=== PATIENT | male | born 1960 | race Two or more races ===

== ENCOUNTER 2024-12-05 11:16 | Inpatient (IN) | payer MEDICARE, OTHER ==
[~2024-12-05] VITALS: Ht 165.1 cm; Wt 71.6 kg
--- NOTE | 2024-12-05 11:59 | ED.PDOC ---
GI ASSESSMENT HPI Comments A 64 year-old male, with a PMHX of high lipids, presents to the ED with a chief complaint of lower abdominal pain with associated diarrhea and gas. Patient states lower abdominal pain has been constant for months, but reports gas and diarrhea with dark stool as of yesterday. Patient reports lower abdominal pain as 6/10 and constant. Patient reports being seen at a local outpatient clinic where he was given medication for H. pylori, but reports no alleviating factors. Patient has no further complaints at this time and otherwise denies further associated symptoms of N/V, hematemesis, chest pain, fever, chills, dysuria, or hematuria. Chief Complaint: Abdominal Pain Time Seen by MD: 11:39 Reviewed Notes: Nurses Notes, Medications, Allergies Allergies: Coded Allergies: NO KNOWN ALLERGIES (Unverified , 12/05/24) Information Source: Patient Mode of Arrival: Ambulatory Timing: Months Duration: Since onset Prehospital treatment: None Severity: Moderate Pain Location: RLQ, LLQ Associated sign and symptoms: Diarrhea, Abdominal Pain Past Medical History PAST MEDICAL HISTORY: High Lipids Surgical History: Hernia Repair Surgical History (Other): Bilateral Knee Surgery, Back Surgery Family History Family History: Reviewed,noncontributory to illness, No family hx of Cancer, No family hx of Heart v[place]a, No family hx of HTN, No family hx ofKidney vinita, No family hx of Liver v[place]a, No family hx of Lung v[place]a, No family hx of Stroke, Family hx of DM Social History Smoker: Non-Smoker Alcohol: Rarely Drugs: Denies Drug Use Lives In: Home Constitutional: denies: chills, diaphoresis, fatigue, fever, malaise, sweats, weakness, others EENTM: denies: blurred vision, double vision, ear bleeding, ear discharge, ear drainage, ear pain, ear ringing, eye pain, eye redness, hearing loss, mouth pain, mouth swelling, nasal discharge, nose bleeding, nose congestion, nose pain, photophobia, tearing, throat pain, throat swelling, voice changes, others Respiratory: denies: cough, hemoptysis, orthopnea, SOB at rest, shortness of breath, SOB with excertion, stridor, wheezing, others Cardiovascular: denies: chest pain, dizzy spells, diaphoresis, Dyspnea on exertion, edema, irregular heart beat, left arm pain, lightheadedness, palpitations, PND, syncope, others Gastrointestinal: reports: abdominal pain, diarrhea, others (dark stool ); denies: abdomen distended, blood streaked bowels, constipated, dysphagia, difficulty swallowing, hematemesis, melena, nausea, poor appetite, poor fluid i ntake, rectal bleeding, rectal pain, vomiting Genitourinary: denies: burning, dysuria, flank pain, frequency, hematuria, incontinence, penile discharge, penile sore, pain, testicle pain, testicle swelling, urgency, others Neurological: denies: dizziness, fainting, headache, left sided numbness, left sided weakness, numbness, paresthesia, pre-existing deficit, right sided numbness, right sided weakness, seizure, speech problems, tingling, tremors, weakness, others Musculoskeletal: denies: back pain, gout, joint pain, joint swelling, muscle pain, muscle stiffness, neck pain, others Integumetry: denies: bruises, change in color, change in hair/nails, dryness, laceration, lesions, lumps, rash, wounds, others Allergic/Immunocompromised: denies: Difficulty Healing, Frequent Infections, Hives, Itching, others Hematologic/Lymphatic: denies: anemia, blood clots, easy bleeding, easy bruisi ng, swollen glands, others Endocrine: denies: excessive hunger, excessive sweating, excessive thirst, exce ssive urination, flushing, intolerance to cold, intolerance to heat, unexplained weight gain, unexplained weight loss, others Psychiatric: denies: anxiety, bipolar disorder, depression, hopeless, panic disorder, schizophrenia, sleepless, suicidal, others All Other Systems: Reviewed and Negative Physical Exam General Appearance: Moderate Distress HEENT: Normal ENT Inspection, Pharynx Normal, TMs Normal Neck: Full Range of Motion, Non-Tender, Normal, Normal Inspection Respiratory: Chest Non-Tender, Lungs Clear, No Accessory Muscle Use, No Respiratory Distress, Normal Breath Sounds Cardiovascular: No Edema, No JVD, No Murmur, No Gallop, Normal Peripheral Pulses, Regular Rate/Rhythm Breast Exam: Deferred Gastrointestinal: Diffuse, No Organomegaly, No Pulsatile Mass, Normal Bowel Sounds, Soft, Tenderness Genitalia: Deferred Pelvic: Deferred Rectal: Deferred Extremities: No calf tenderness, Normal capillary refill, Normal inspection, Normal range of motion, Non-tender, No pedal edema Musculoskeletal : Apperance: Normal Neurologic: Alert, welder pipe making II-XII nml as Tested, No Motor Deficits, Normal Affect, Normal Mood, No Sensory Deficits Cerebellar Function: Normal Reflexes: Normal Skin: Dry, Normal Color, Warm Lymphatic: No Adenopathy Was a procedure done? Was a procedure done?: No GI differential Dx Differential Diagnosis: Constipation, Gastroenteritis, Inflammatory BD, UTI, Dehydration, Food Poisoning, Bacterial, Parasitic, Viral X-Ray, Labs, Meds, VS Vital Signs Date Time Temp Pulse Resp B/P (MAP) Pulse Ox O2 Delivery O2 Flow Rate FiO2 12/05/24 11:20 98.0 59 16 148/81 98 98.0 Lab Test 12/05/24 11:56 12/05/24 11:42 Range/Units White Blood Count 6.6 4.4-10.8 10^3/uL Red Blood Count 5.01 4.5-5.90 10^6/uL Hemoglobin 15.9 13.5-17.5 g/dL Hematocrit 45.4 41.0-53.0 % Mean Corpuscular Volume 90.7 80.0-100.0 fL Mean Corpuscular Hemoglobin 31.7 28.0-32.0 pg Mean Corpuscular Hemoglobin Concent 34.9 32.0-36.0 g/dL Red Cell Distribution Width 12.8 11.8-14.3 % Platelet Count 307 140-450 10^3/uL Mean Platelet Volume 7.5 6.9-10.8 fL Neutrophils (%) (Auto) 70.9 37.0-80.0 % Lymphocytes (%) (Auto) 18.9 10.0-50.0 % Monocytes (%) (Auto) 8.4 0.0-12.0 % Eosinophils (%) (Auto) 1.2 0.0-7.0 % Basophils (%) (Auto) 0.6 0.0-2.0 % Neutrophils # (Auto) 4.7 1.6-8.6 10 ^3/uL Lymphocytes # (Auto) 1.3 0.4-5.4 10 ^3/uL Monocytes # (Auto) 0.6 0-1.3 10 ^3/uL Eosinophils # (Auto) 0.1 0-0.8 10 ^3/uL Basophils # (Auto) 0 0-0.2 10 ^3/uL Nucleated Red Blood Cells 0.1 % Sodium Level 140 136-145 mmol/L Potassium Level 4.0 3.5-5.1 mmol/L Chloride Level 106 98-107 mmol/L Carbon Dioxide Level 25 20-31 mmol/L Anion Gap 9 5-15 Blood Urea Nitrogen 17 9-23 mg/dL Creatinine 0.71 0.700-1.30 mg/dL Glomerular Filtration Rate Calc 101 >90 mL/min BUN/Creatinine Ratio 23.9 H 10.0-20.0 Serum Glucose 104 74-106 mg/dL Calcium Level 9.3 8.7-10.4 mg/dL Total Bilirubin 0.8 0.2-1.0 mg/dL Aspartate Amino Transferase (AST) 41 H 13-40 U/L Alanine Aminotransferase (ALT) 42 H 7-40 U/L Alkaline Phosphatase 68 46-116 U/L Total Protein 7.0 5.7-8.2 g/dL Albumin 4.6 3.2-4.8 g/dL Lipase 93 H 12-53 U/L Urine Color Yellow Yellow Urine Clarity Clear Clear Urine pH 5.5 5.0-9.0 Urine Specific [place] 1.030 1.001-1.035 Urine Protein Negative Negative Urine Ketones Negative Negative Urine Blood Negative Negative /uL Urine Nitrite Negative Negative Urine Bilirubin Negative Negative Urine Urobilinogen Normal Negative mg/dL Urine Leukocyte Esterase Negative Negative /uL Urine RBC 1 0 - 3 /hpf Urine Microscopic WBC 1 0-3 /HPF Urine Squamous Epithelial Cells Few <5 /hpf Urine Bacteria None seen None Seen /hpf Urine Glucose Normal Normal mg/dL CAT scan of the abdomen and pelvis shows: IMPRESSION: 1. 5 mm left lower lobe noncalcified pulmonary nodule. Recommend follow-up according to Fleischner society guidelines. 2. 13 mm left renal superior pole hyperattenuating cortical lesion which may represent a hyperdense or hemorrhagic cyst. Recommend follow-up renal ultrasound for better characterization. 3. Mild prostatic enlargement. 4. Postoperative changes ventral pelvic wall herniorrhaphy with mesh and lumbar spine surgery. 5. No evidence of bowel obstruction, acute appendicitis, or other acute process in the abdomen or pelvis. The patient's CBC is within normal limits. At this time, the patient's lipase is elevated at 90 consistent with acute pancreatitis The patient is being admitted at the signs The patient understands and agrees with the management. Images Reviewed?: Images reviewed and evaluated by me Time of 1ST Reevaluation: 12:17 Reevaluation 1ST: Unchanged Patient Education/Counseling: Diagnosis, Treatment, Prognosis Family Education/Counseling: No Family Present SEPSIS Sepsis Screen Date sepsis recognized/suspect: Dec 05, 2024 Time Sepsis recognized/suspect: 1120 Recent Procedure: No On Antibiotic Therapy: No Respiratory Rate >20: No Heart Rate >90: No Temp<36 C (96.8 F) or >38.3 C: No SBP <90 or MAP <65 mmHG: No New Acute Mental Status Change: No Is the patient on CPAP, BIPAP,: No Physician Orders Ct Ab Pel Wo Con-No Oral Or Iv (12/05/24 11:42) Vital Signs Date Time Temp Pulse Resp B/P (MAP) Pulse Ox O2 Delivery O2 Flow Rate FiO2 12/05/24 11:20 98.0 59 16 148/81 98 98.0 Laboratory Tests Test 12/05/24 11:56 White Blood Count 6.6 10^3/uL (4.4-10.8) Departure 1 Departure Time of Disposition: 13:21 Impression: Primary Impression: Intractable abdominal pain Additional Impression: Acute pancreatitis Qualified Codes: K85.90 - Acute pancreatitis without necrosis or infection, unspecified Disposition: ADMITTED INPATIENT Condition: Fair Discharged With: Self Critical Care Note Critical Care Time?: No Stability Stability form required: Yes Unstable for transfer: ED Physician Assesment (Clinical assesment) Heart Score Heart Score: Heart Score Response (Comments) Value History N/A 0 EKG N/A 0 Age N/A 0 Risk Factors N/A 0 Troponin N/A 0 Total 0 I personally scribed for QUINTEN CONKLIN MD ([email or web address]) on 12/05/24 at 11:59. Electronically submitted by Isa Wiseman ([employer]). I personally scribed for QUINTEN CONKLIN MD ([email or web address]) on 12/05/24 at 12:52. Electronically submitted by Isa Wiseman ([employer]). QUINTEN CONKLIN MD Dec 05, 2024 11:59
[2024-12-05 12:16] LABS: Hematocrit 45.4 % (41.0-53.0); Hemoglobin 15.9 g/dL (13.5-17.5); Mean Corpuscular Hemoglobin 31.7 pg (28.0-32.0); Mean Corpuscular Volume 90.7 fL (80.0-100.0); Nucleated Red Blood Cells % 0.1 %
--- NOTE | 2024-12-05 12:45 | DVH ---
EXAM: CT CT AB PEL WO CON-NO ORAL OR IV HISTORY: pain COMPARISON: None TECHNIQUE: Helical CT images of the abdomen and pelvis were performed without IV contrast. Sagittal a nd coronal reformatted images were obtained. This CT exam was performed using one or more of the foll owing dose reduction techniques: Automated exposure control, adjustment of the mA and/or kv according to patient size, or the use of iterative reconstruction techniques. Radiation Dose: Abdomen/Pelvis: CTDIvol 6.62 mGy, DLP 385.2 mGy*cm. FINDINGS: CT abdomen: There is a 5 mm noncalcified pulmonary nodule in the left lower lobe (image 13, series 3) . The heart is not enlarged. There is a hyperattenuating 13 mm lesion in the left renal superior pole cortex (image 29, series 2). The noncontrast liver, spleen, gallbladder, pancreas, right kidney, and bilateral adrenal glands are unremarkable. No abdominal aortic aneurysm. CT pelvis: No abnormal bowel dilatation, free air, or free fluid. The appendix and urinary bladder ar e unremarkable. The prostate is mildly enlarged. There are postoperative changes of ventral pelvic he rniorrhaphy with mesh. There are postoperative changes of L4-L5 discectomy, intervertebral disc prost hesis, and posterior fusion with pedicle screws and rods. There is lumbosacral transitional vertebrae . IMPRESSION: 1. 5 mm left lower lobe noncalcified pulmonary nodule. Recommend follow-up according to Fleischner s ociety guidelines. 2. 13 mm left renal superior pole hyperattenuating cortical lesion which may represent a hyperdense o r hemorrhagic cyst. Recommend follow-up renal ultrasound for better characterization. 3. Mild prostatic enlargement. 4. Postoperative changes ventral pelvic wall herniorrhaphy with mesh and lumbar spine surgery. 5. No evidence of bowel obstruction, acute appendicitis, or other acute process in the abdomen or pel vis.
[2024-12-05 12:50] LABS: Urine Protein, UAD Negative (Negative)
[2024-12-05 13:00] LABS: Albumin 4.6 g/dL (3.2-4.8); Alkaline Phosphatase 68 U/L (46-116); Anion Gap 9 (5-15); BUN/Creatinine Ratio 23.9 (10.0-20.0); Bilirubin, Total 0.8 mg/dL (0.2-1.0); Blood Urea Nitrogen 17 mg/dL (9-23); Calcium 9.3 mg/dL (8.7-10.4); Carbon Dioxide 25 mmol/L (20-31); Chloride 106 mmol/L (98-107); Glucose 104 mg/dL (74-106); Potassium 4.0 mmol/L (3.5-5.1); Sodium 140 mmol/L (136-145); Total Protein 7.0 g/dL (5.7-8.2)
[2024-12-05 13:04] LABS: Alanine Aminotransferase 42 U/L (7-40); Lipase 93 U/L (12-53)
[2024-12-05] MEDS ORDERED: ONDANSETRON HCL 4 MG/2 ML VIAL IV PRN (18:45)
[2024-12-05] MEDS ORDERED: DOCUSATE SOD 100 MG CAP PO PRN (18:45)
[2024-12-05] MEDS ORDERED: ACETAMINOPHEN 325 MG TAB PO PRN (18:45)
[2024-12-05] MEDS ORDERED: HYDROcodone-ACET 5/325MG TAB PO PRN (18:45)
--- NOTE | 2024-12-05 18:47 | DVHHP2 ---
Admitting Diagnosis: Abdominal pain History of Present Illness A 64 year-old male, with a PMHX of high lipids, presents to the ED with a chief complaint of lower abdominal pain with associated diarrhea and gas. Patient states lower abdominal pain has been constant for months, but reports gas and diarrhea with dark stool as of yesterday. Patient reports lower abdominal pain as 6/10 and constant. Patient reports being seen at a local outpatient clinic where he was given medication for H. pylori, but reports no alleviating factors. Patient has no further complaints at this time and otherwise denies further associated symptoms of N/V, hematemesis, chest pain, fever, chills, dysuria, or hematuria. PAST MEDICAL HISTORY: High Lipids Surgical History: Hernia Repair Surgical History (Other): Bilateral Knee Surgery, Back Surgery Family History Family History: Reviewed,noncontributory to illness, No family hx of Cancer, No family hx of Heart v[place], No family hx of HTN, No family hx ofKidney v[place]a, No family hx of Liver [place], No family hx of Lung [place], No family hx of Stroke, Family hx of DM Social History Smoker: Non-Smoker Alcohol: Rarely Drugs: Denies Drug Use Lives In: Home Allergies: Coded Allergies: NO KNOWN ALLERGIES (Unverified , 12/05/24) Vital Signs Vital Signs Date Time Temp Pulse Resp B/P (MAP) Pulse Ox O2 Delivery O2 Flow Rate FiO2 12/05/24 11:20 98.0 59 16 148/81 98 98.0 Physical Exam Generally 64 years old male sitting on chair. Mild distress HEENT-atraumatic, normocephalic Heart-regular rate and rhythm Lungs clear to auscultate Abdomen soft, mild discomfort, nondistended Musculoskeletal-no edema cyanosis Neuro-AO x3, no focal deficits SEPSIS Sepsis Screen Date sepsis recognized/suspect: Dec 05, 2024 Time Sepsis recognized/suspect: 1120 Recent Procedure: No On Antibiotic Therapy: No Respiratory Rate >20: No Heart Rate >90: No Temp<36 C (96.8 F) or >38.3 C: No SBP <90 or MAP <65 mmHG: No New Acute Mental Status Change: No Is the patient on CPAP, BIPAP,: No Physician Orders Ct Ab Pel Wo Con-No Oral Or Iv (12/05/24 11:42) H. Pylori Urea Breath Test (12/05/24 18:41) Admit (12/05/24 18:41) Code Status (12/05/24 18:41) Vital Signs .PER UNIT PROTOCOL (12/05/24 18:41) Review Orders With Adm.Md (12/05/24 18:41) Encourage Activity As Tolerate (12/05/24 18:41) Regular Diet (12/06/24 Breakfast) Sodium Chloride Lock (Saline Lock Ns) (12/05/24 22:00) Docusate Sodium Capsule (Colace Capsule) (12/05/24 18:45) Acetaminophen Tablet (Tylenol Tablet) (12/05/24 18:45) Notify Md Of Changes From Base (12/05/24 18:41) Advance Directive (12/05/24 18:41) Patient Condition (12/05/24 18:41) Allergies (12/05/24 18:41) Hydrocodone-Acet 5/325mg Tab ([place] 5/32 (12/05/24 18:45) Ondansetron Hcl (Zofran) (12/05/24 18:45) Lovenox 40mg (12/06/24 10:00) Vital Signs Date Time Temp Pulse Resp B/P (MAP) Pulse Ox O2 Delivery O2 Flow Rate FiO2 12/05/24 11:20 98.0 59 16 148/81 98 98.0 Laboratory Tests Test 12/05/24 11:56 White Blood Count 6.6 10^3/uL (4.4-10.8) Results Labs Test 12/05/24 11:56 12/05/24 11:42 Range/Units White Blood Count 6.6 4.4-10.8 10^3/uL Red Blood Count 5.01 4.5-5.90 10^6/uL Hemoglobin 15.9 13.5-17.5 g/dL Hematocrit 45.4 41.0-53.0 % Mean Corpuscular Volume 90.7 80.0-100.0 fL Mean Corpuscular Hemoglobin 31.7 28.0-32.0 pg Mean Corpuscular Hemoglobin Concent 34.9 32.0-36.0 g/dL Red Cell Distribution Width 12.8 11.8-14.3 % Platelet Count 307 140-450 10^3/uL Mean Platelet Volume 7.5 6.9-10.8 fL Neutrophils (%) (Auto) 70.9 37.0-80.0 % Lymphocytes (%) (Auto) 18.9 10.0-50.0 % Monocytes (%) (Auto) 8.4 0.0-12.0 % Eosinophils (%) (Auto) 1.2 0.0-7.0 % Basophils (%) (Auto) 0.6 0.0-2.0 % Neutrophils # (Auto) 4.7 1.6-8.6 10 ^3/uL Lymphocytes # (Auto) 1.3 0.4-5.4 10 ^3/uL Monocytes # (Auto) 0.6 0-1.3 10 ^3/uL Eosinophils # (Auto) 0.1 0-0.8 10 ^3/uL Basophils # (Auto) 0 0-0.2 10 ^3/uL Nucleated Red Blood Cells 0.1 % Sodium Level 140 136-145 mmol/L Potassium Level 4.0 3.5-5.1 mmol/L Chloride Level 106 98-107 mmol/L Carbon Dioxide Level 25 20-31 mmol/L Anion Gap 9 5-15 Blood Urea Nitrogen 17 9-23 mg/dL Creatinine 0.71 0.700-1.30 mg/dL Glomerular Filtration Rate Calc 101 >90 mL/min BUN/Creatinine Ratio 23.9 H 10.0-20.0 Serum Glucose 104 74-106 mg/dL Calcium Level 9.3 8.7-10.4 mg/dL Total Bilirubin 0.8 0.2-1.0 mg/dL Aspartate Amino Transferase (AST) 41 H 13-40 U/L Alanine Aminotransferase (ALT) 42 H 7-40 U/L Alkaline Phosphatase 68 46-116 U/L Total Protein 7.0 5.7-8.2 g/dL Albumin 4.6 3.2-4.8 g/dL Lipase 93 H 12-53 U/L Urine Color Yellow Yellow Urine Clarity Clear Clear Urine pH 5.5 5.0-9.0 Urine Specific [place] 1.030 1.001-1.035 Urine Protein Negative Negative Urine Ketones Negative Negative Urine Blood Negative Negative /uL Urine Nitrite Negative Negative Urine Bilirubin Negative Negative Urine Urobilinogen Normal Negative mg/dL Urine Leukocyte Esterase Negative Negative /uL Urine RBC 1 0 - 3 /hpf Urine Microscopic WBC 1 0-3 /HPF Urine Squamous Epithelial Cells Few <5 /hpf Urine Bacteria None seen None Seen /hpf Urine Glucose Normal Normal mg/dL Primary Diagnosis Recent H pylori infection possible reoccurrence Plan Check H pylori stool test or urea breath test Pain control If positive restart culture but therapy Full code Lovenox for DVT prophylaxis Regular diet Plan discussed with: Patient Date of Service: Dec 05, 2024 Billing Provider: FEDE DO MD Common Visit Codes: [id number] INP/OBS CARE (MOD) FEDE DO MD Dec 05, 2024 18:47
[2024-12-05 19:53] VITALS: PULSE 65; RESP 18; O2SAT 98
[2024-12-05 20:15] VITALS: BP 137/75; PULSE 61; RESP 18; TEMP 97.4; O2SAT 98
[2024-12-05] MEDS: SODIUM CHLOR 0.9% PF (SALINE LOCK) 10ML VIAL/SYR IV SCH (22:00)
[2024-12-05 22:53] VITALS: BP 137/75; PULSE 61; RESP 18; TEMP 97.4; O2SAT 98
[2024-12-06] VITALS (9 sets, daily range): BP systolic 123–139; BP diastolic 66–89; PULSE 54–70; RESP 17–18; TEMP 97.2–98.2; O2SAT 96–98
[2024-12-06 06:57] LABS: Hematocrit 40.9 % (41.0-53.0); Hemoglobin 14.7 g/dL (13.5-17.5); Mean Corpuscular Hemoglobin 32.2 pg (28.0-32.0); Mean Corpuscular Volume 89.5 fL (80.0-100.0); Nucleated Red Blood Cells % 0.1 %
[2024-12-06 07:09] LABS: Alanine Aminotransferase 37 U/L (7-40); Albumin 4.2 g/dL (3.2-4.8); Alkaline Phosphatase 57 U/L (46-116); Anion Gap 9 (5-15); BUN/Creatinine Ratio 21.9 (10.0-20.0); Bilirubin, Total 1.1 mg/dL (0.2-1.0); Blood Urea Nitrogen 16 mg/dL (9-23); Calcium 9.5 mg/dL (8.7-10.4); Carbon Dioxide 26 mmol/L (20-31); Glucose 92 mg/dL (74-106); Potassium 3.9 mmol/L (3.5-5.1); Sodium 142 mmol/L (136-145); Total Protein 6.2 g/dL (5.7-8.2)
[2024-12-06 07:10] LABS: Chloride 107 mmol/L (98-107)
[2024-12-06] MEDS: ENOXAPARIN SOD 40 MG/0.4 ML SYRINGE SC SCH (09:22)
--- NOTE | 2024-12-06 11:22 | DVHPN2 ---
Subjective Continues to complain of abdominal pain Reviewed: Care Plan, H&P, Labs, Medications, Previous Orders, Radiology, Other (Consultation) Changes from previous H/P or p: Changes Objective Vitals Vital Signs Date Time Temp Pulse Resp B/P (MAP) Pulse Ox O2 Delivery O2 Flow Rate FiO2 12/06/24 10:00 98.1 70 18 128/84 (99) 98 98.1 12/06/24 08:00 Room Air* 0 21 Intake/Output Intake and Output 12/06/24 07:00 Intake Total 120 ml Balance 120 ml Intake Oral 120 ml General Appearance: Alert, Oriented X3, Cooperative, No acute distress HEENT: Atraumatic Lungs: Clear to auscultation, Normal air movement Cardiovascular: Regular rate, Normal S1, Normal S2 Abdomen: Normal bowel sounds, Soft, Other (Mild epigastric and right upper quadrant tenderness) Neuro: Normal speech, Cranial nerves 3-12 NL Psych/Mental Status: Mental status NL, Mood NL Medications Current Medications Medications Dose Ordered Sig/Hang Route Start Time Stop Time Status Last Admin Dose Admin Sodium Chloride 10 ml Q8HR IV 12/05/24 22:00 12/06/24 05:23 10 ML Docusate Sodium 100 mg BIDPRN PRN PO 12/05/24 18:45 Acetaminophen 650 mg Q6HP PRN PO 12/05/24 18:45 Acetaminophen/ Hydrocodone Bitart 1 tab Q4HP PRN PO 12/05/24 18:45 Ondansetron HCl 4 mg Q4HP PRN IV 12/05/24 18:45 Enoxaparin Sodium 40 mg DAILY SC 12/06/24 10:00 12/06/24 09:22 40 MG Laboratory Results Laboratory Tests 12/06/24 06:32 Chemistry Test 12/05/24 11:56 12/06/24 06:32 Albumin 4.6 g/dL (3.2-4.8) 4.2 g/dL (3.2-4.8) Calcium Level 9.3 mg/dL (8.7-10.4) 9.5 mg/dL (8.7-10.4) Total Protein 7.0 g/dL (5.7-8.2) 6.2 g/dL (5.7-8.2) Lipid panel Test 12/05/24 11:56 Lipase 93 U/L (12-53) H LFT Test 12/05/24 11:56 12/06/24 06:32 Alanine Aminotransferase (ALT) 42 U/L (7-40) H 37 U/L (7-40) Alkaline Phosphatase 68 U/L (46-116) 57 U/L (46-116) Aspartate Amino Transferase (AST) 41 U/L (13-40) H 34 U/L (13-40) Total Bilirubin 0.8 mg/dL (0.2-1.0) 1.1 mg/dL (0.2-1.0) H Urinalysis Test 12/05/24 11:42 Urine Color Yellow (Yellow) Urine Clarity Clear (Clear) Urine pH 5.5 (5.0-9.0) Urine Specific [place] 1.030 (1.001-1.035) Urine Protein Negative (Negative) Urine Ketones Negative (Negative) Urine Blood Negative /uL (Negative) Urine Nitrite Negative (Negative) Urine Bilirubin Negative (Negative) Urine Urobilinogen Normal mg/dL (Negative) Urine Leukocyte Esterase Negative /uL (Negative) Urine RBC 1 /hpf (0 - 3) Urine Microscopic WBC 1 /HPF (0-3) Urine Squamous Epithelial Cells Few /hpf (<5) Urine Bacteria None seen /hpf (None Seen) Urine Glucose Normal mg/dL (Normal) Labs and/or images reviewed: Labs reviewed by me, Image(s) reviewed by me Assessment/Plan Assessment/Plan A 64-year-old male patient; with a history of H pylori infection; who presented to the emergency department with worsening abdominal pain. # Abdominal pain; most likely related to H pylori infection; elevated lipase # 5 mm left lower lobe noncalcified pulmonary nodule; needs outpatient follow up # Postoperative changes of ventral pelvic wall herniorrhaphy with mesh and lumbar spine surgery # Suspected renal mass # Overweight GI is following; ordered right upper quadrant ultrasound Continue pain management as needed Consulted Urology after reviewing renal ultrasound Reviewed lab workup and imaging studies Counseled the patient on monitor adopting healthy lifestyle with diet and exercise in order to lose weight Continue monitoring Goals of care discussed with the patient for 20 minutes; full code Late Entry. This medical document was created using an electronic medical record system with computerized dictation system. Although this document has been carefully reviewed, there might still be some phonetic and typographical errors. These areas are purely typographical due to imperfections of the software programs, and do not reflect any compromise in the patient's medical care. Plan discussed with: Patient, Other (Nurse) Date of Service: Dec 06, 2024 Billing Provider: CHEYANNE CM MD Common Visit Codes: [id number] INP/OBS CARE(HIGH) Secondary Visit Codes: [id number]-[id number] CARE PLAN 30 MINUTES (20 minutes) CHEYANNE CM MD Dec 06, 2024 11:22
--- NOTE | 2024-12-06 12:31 | DVH ---
RENAL ULTRASOUND History: Left renal superior pole hyperattenuating cortical lesion. Comparison: None Technique: Multiple real-time sonographic images of the kidney and bladder were obtained in conjuncti on with Doppler imaging. Findings: The right kidney measures 9 cm and demonstrates no evidence of hydronephrosis, perinephric fluid cuauhtemoc ection, or shadowing stone. The left kidney measures 10.5 cm and demonstrates no evidence of hydronephrosis, perinephric fluid co llection, or shadowing stone. Urinary bladder: Prevoid urinary bladder volume is 96 mL. Patient unable to void. Bladder wall thick ening/trabeculation Impression: No hydronephrosis. Previously described left renal upper pole lesion is not well characterized on sonography. Recommend MRI abdomen with and without contrast to evaluate appropriately Bladder volume 96 cc. Patient unable to void. Bladder wall thickening/ trabeculation which can be secondary to neurogenic bladder, outlet obstructi on
--- NOTE | 2024-12-06 14:30 | DVHINCON2 ---
GI Consult Consult Note GI consult note Date of Consultation: 12/06/2024 Chief Complaint: Abdominal pain Referring Physician: Dr. Garza H&P: 64-year-old male with past medical history of high lipids presented to ER with complains of lower abdominal pain associated with diarrhea. Patient's symptoms started about five months ago and has been intermittent. Patient has noticed more gas in his stomach and gurgling sounds. No weight loss. No nausea or vomiting. Patient having loose stool about 3 times every day, and has been dark in color, patient completed treatment course for H. pylori gastritis about a week ago, and took a complete 14 day course. Patient also has been using Pepto-Bismol which helped with his diarrhea. No EGD in past. Patient has had total of three colonoscopies in the past with polypectomy. Last colonoscopy about 10 years ago within normal limits per patient. Past Medical History: High lipids Past Surgical History: Hernia repair, bilateral knee surgery, back surgery Social History: NO smoking, drinking ETOH and use of illegal drugs. Family History: Noncontributory Review of Systems: Constitutional: no fever, chill, weight loss HEENT: no eye pain, no hearing loss, no oral lesion, no scleral icterus Heart: no chest pain, no chest pressure Lung: no cough, no dyspnea with exertion Abdomen: see HPI Physical exam: General: NAD, AAOX3 Chest: lung love clear to auscultation Heart: RRR, no murmur Abdomen: non-distended, no tenderness to palpation, +BS Labs: Labs Test 12/06/24 13:08 12/06/24 06:32 12/05/24 11:56 12/05/24 11:42 Range/Units White Blood Count 5.5 4.4-10.8 10^3/uL Red Blood Count 4.57 4.5-5.90 10^6/uL Hemoglobin 14.7 13.5-17.5 g/dL Hematocrit 40.9 L 41.0-53.0 % Mean Corpuscular Volume 89.5 80.0-100.0 fL Mean Corpuscular Hemoglobin 32.2 H 28.0-32.0 pg Mean Corpuscular Hemoglobin Concent 35.9 32.0-36.0 g/dL Red Cell Distribution Width 12.5 11.8-14.3 % Platelet Count 270 140-450 10^3/uL Mean Platelet Volume 7.2 6.9-10.8 fL Neutrophils (%) (Auto) 68.2 37.0-80.0 % Lymphocytes (%) (Auto) 19.4 10.0-50.0 % Monocytes (%) (Auto) 8.7 0.0-12.0 % Eosinophils (%) (Auto) 2.7 0.0-7.0 % Basophils (%) (Auto) 1.0 0.0-2.0 % Neutrophils # (Auto) 3.7 1.6-8.6 10 ^3/uL Lymphocytes # (Auto) 1.1 0.4-5.4 10 ^3/uL Monocytes # (Auto) 0.5 0-1.3 10 ^3/uL Eosinophils # (Auto) 0.1 0-0.8 10 ^3/uL Basophils # (Auto) 0.1 0-0.2 10 ^3/uL Nucleated Red Blood Cells 0.1 % Sodium Level 142 136-145 mmol/L Potassium Level 3.9 3.5-5.1 mmol/L Chloride Level 107 98-107 mmol/L Carbon Dioxide Level 26 20-31 mmol/L Anion Gap 9 5-15 Blood Urea Nitrogen 16 9-23 mg/dL Creatinine 0.73 0.700-1.30 mg/dL Glomerular Filtration Rate Calc 100 >90 mL/min BUN/Creatinine Ratio 21.9 H 10.0-20.0 Serum Glucose 92 74-106 mg/dL Calcium Level 9.5 8.7-10.4 mg/dL Total Bilirubin 1.1 H 0.2-1.0 mg/dL Aspartate Amino Transferase (AST) 34 13-40 U/L Alanine Aminotransferase (ALT) 37 7-40 U/L Alkaline Phosphatase 57 46-116 U/L Total Protein 6.2 5.7-8.2 g/dL Albumin 4.2 3.2-4.8 g/dL Lipase 93 H 12-53 U/L Urine Color Yellow Yellow Urine Clarity Clear Clear Urine pH 5.5 5.0-9.0 Urine Specific [place] 1.030 1.001-1.035 Urine Protein Negative Negative Urine Ketones Negative Negative Urine Blood Negative Negative /uL Urine Nitrite Negative Negative Urine Bilirubin Negative Negative Urine Urobilinogen Normal Negative mg/dL Urine Leukocyte Esterase Negative Negative /uL Urine RBC 1 0 - 3 /hpf Urine Microscopic WBC 1 0-3 /HPF Urine Squamous Epithelial Cells Few <5 /hpf Urine Bacteria None seen None Seen /hpf Urine Glucose Normal Normal mg/dL Imaging: CT abdomen pelvis IMPRESSION: 1. 5 mm left lower lobe noncalcified pulmonary nodule. Recommend follow-up according to Fleischner society guidelines. 2. 13 mm left renal superior pole hyperattenuating cortical lesion which may r epresent a hyperdense or hemorrhagic cyst. Recommend follow-up renal ultrasound for better characterization. 3. Mild prostatic enlargement. 4. Postoperative changes ventral pelvic wall herniorrhaphy with mesh and lumbar spine surgery. 5. No evidence of bowel obstruction, acute appendicitis, or other acute process in the abdomen or pelvis. Renal ultrasound Impression: No hydronephrosis. Previously described left renal upper pole lesion is not well characterized on sonography. Recommend MRI abdomen with and without contrast to evaluate appropriately Bladder volume 96 cc. Patient unable to void. Bladder wall thickening/ trabeculation which can be secondary to neurogenic bladder, outlet obstruction Assessment: Abdominal pain Diarrhea Abnormal results of renal ultrasound Plan: Discussed with Dr. Malin Ultrasound of gallbladder for elevated total bili Recheck lipase Stool for culture C diff and occult blood Bentyl Diet as tolerated Discussed outpatient GI follow-up for elective colonoscopy We will continue to follow patient Thank you for this consult Date of Service: Dec 06, 2024 Billing Provider: TANO ROSS Common Visit Codes: CONSULT ONLY Consultation Codes: [id number] CONSULT <60MIN TANO ROSS Dec 06, 2024 14:30
--- NOTE | 2024-12-06 15:06 | DVH ---
ABDOMINAL ULTRASOUND CLINICAL HISTORY: elevated T Bili, abd pain TECHNIQUE: Multiple grayscale and color Doppler ultrasound images were obtained of the abdomen. WID: COMPARISON: None FINDINGS: Liver and Biliary System: Homogeneous echotexture, normal size measuring 15.1 cm. No focal hepatic observations. No intrahepatic bile duct dilatation. The common duct measures 0.4 cm at the kellie h epatis. The gallbladder is normal caliber without wall thickening or cholelithiasis. Pancreas: Not well seen due to overlying bowel gas. IMPRESSION: No evidence of cholecystitis or biliary ductal dilatation.
[2024-12-06] MEDS: DICYCLOMINE HCL 10 MG CAP PO SCH (17:01)
[2024-12-07] VITALS (7 sets, daily range): BP systolic 121–149; BP diastolic 70–79; PULSE 55–60; RESP 17–18; TEMP 96.6–97.5; O2SAT 97–99
--- NOTE | 2024-12-07 09:10 | DVHPN2 ---
Subjective Feeling better this morning with no abdominal pain and no diarrhea Reviewed: Care Plan, H&P, Labs, Medications, Previous Orders, Radiology, Other (Consultation) Changes from previous H/P or p: Changes Objective Vitals Vital Signs Date Time Temp Pulse Resp B/P (MAP) Pulse Ox O2 Delivery O2 Flow Rate FiO2 12/07/24 05:00 97.5 56 17 123/75 (91) 97 97.5 12/06/24 20:00 Room Air* 0 21 Intake/Output Intake and Output 12/07/24 07:00 Intake Total 1350 ml Balance 1350 ml Intake Oral 1350 ml # Voids 5 # Bowel Movements 2 General Appearance: Alert, Oriented X3, Cooperative, No acute distress HEENT: Atraumatic Lungs: Clear to auscultation, Normal air movement Cardiovascular: Regular rate, Normal S1, Normal S2 Abdomen: Normal bowel sounds, Soft, No tenderness Neuro: Normal speech, Cranial nerves 3-12 NL Psych/Mental Status: Mental status NL, Mood NL Medications Current Medications Medications Dose Ordered Sig/Hang Route Start Time Stop Time Status Last Admin Dose Admin Sodium Chloride 10 ml Q8HR IV 12/05/24 22:00 12/07/24 05:37 10 ML Docusate Sodium 100 mg BIDPRN PRN PO 12/05/24 18:45 Acetaminophen 650 mg Q6HP PRN PO 12/05/24 18:45 Acetaminophen/ Hydrocodone Bitart 1 tab Q4HP PRN PO 12/05/24 18:45 Ondansetron HCl 4 mg Q4HP PRN IV 12/05/24 18:45 Enoxaparin Sodium 40 mg DAILY SC 12/06/24 10:00 12/06/24 09:22 40 MG Dicyclomine HCl 20 mg QID PO 12/06/24 18:00 12/07/24 05:37 20 MG Laboratory Results Chemistry Test 12/07/24 08:40 Albumin Pending Calcium Level Pending Total Protein Pending Lipid panel Test 12/07/24 08:40 Lipase Pending LFT Test 12/07/24 08:40 Alanine Aminotransferase (ALT) Pending Alkaline Phosphatase Pending Aspartate Amino Transferase (AST) Pending Total Bilirubin Pending Urinalysis Test 12/05/24 11:42 Urine Color Yellow (Yellow) Urine Clarity Clear (Clear) Urine pH 5.5 (5.0-9.0) Urine Specific [place] 1.030 (1.001-1.035) Urine Protein Negative (Negative) Urine Ketones Negative (Negative) Urine Blood Negative /uL (Negative) Urine Nitrite Negative (Negative) Urine Bilirubin Negative (Negative) Urine Urobilinogen Normal mg/dL (Negative) Urine Leukocyte Esterase Negative /uL (Negative) Urine RBC 1 /hpf (0 - 3) Urine Microscopic WBC 1 /HPF (0-3) Urine Squamous Epithelial Cells Few /hpf (<5) Urine Bacteria None seen /hpf (None Seen) Urine Glucose Normal mg/dL (Normal) Labs and/or images reviewed: Labs reviewed by me, Image(s) reviewed by me Assessment/Plan Assessment/Plan A 64-year-old male patient; with a history of H pylori infection; who presented to the emergency department with worsening abdominal pain. # Abdominal pain with diarrhea; most likely related to H pylori infection; elevated lipase; resolved # 5 mm left lower lobe noncalcified pulmonary nodule; needs outpatient follow up # Postoperative changes of ventral pelvic wall herniorrhaphy with mesh and lumbar spine surgery # Elevated LFTs; resolved # Renal and pancreatic cysts # Overweight GI evaluated during admission; advised the patient to follow up with GI within 2 to 4 weeks for EGD and colonoscopy, and pancreatic cyst Repeat lipase was normal Evaluated by Urology during admission; provided a copy of abdomen/pelvis MRI; advised the patient to follow up with Urology within 2 to 4 weeks to follow up on renal cysts Urology is following; ordered MRI Reviewed lab workup and imaging studies Stool workup negative Counseled the patient on monitor adopting healthy lifestyle with diet and exercise in order to lose weight To follow up with pulmonology within 2 to 4 weeks to follow up on pulmonary nodule To follow up with Dr. Cm next Tuesday in discharge clinic Late Entry. This medical document was created using an electronic medical record system with computerized dictation system. Although this document has been carefully reviewed, there might still be some phonetic and typographical errors. These areas are purely typographical due to imperfections of the software programs, and do not reflect any compromise in the patient's medical care. 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
[2024-12-07 09:15] LABS: Hematocrit 45.3 % (41.0-53.0); Hemoglobin 16.1 g/dL (13.5-17.5); Mean Corpuscular Hemoglobin 32.0 pg (28.0-32.0); Mean Corpuscular Volume 90.2 fL (80.0-100.0); Nucleated Red Blood Cells % 0.1 %
[2024-12-07] MEDS ORDERED: GADOTERATE MEG 10 MMOL/20ml INJ (0.5MMOL/ml) IV ONE (09:25)
[2024-12-07 09:29] LABS: Alanine Aminotransferase 40 U/L (7-40); Albumin 4.7 g/dL (3.2-4.8); Alkaline Phosphatase 66 U/L (46-116); Anion Gap 9 (5-15); BUN/Creatinine Ratio 15.9 (10.0-20.0); Bilirubin, Total 1.1 mg/dL (0.2-1.0); Blood Urea Nitrogen 13 mg/dL (9-23); Calcium 10.2 mg/dL (8.7-10.4); Carbon Dioxide 29 mmol/L (20-31); Chloride 103 mmol/L (98-107); Glucose 92 mg/dL (74-106); Sodium 141 mmol/L (136-145); Total Protein 7.0 g/dL (5.7-8.2)
[2024-12-07 09:30] LABS: Potassium 3.5 mmol/L (3.5-5.1)
--- NOTE | 2024-12-07 13:19 | DVHINCON2 ---
Date of service: Dec 07, 2024 Referring Physician Hospitalist Reason for Consultation renal mass History of Present Illness History Source: Patient Exam Limitations: No limitations HPI 64 year-old male, with a PMHX of high lipids, presents to the ER with a chief complaint of lower abdominal pain with associated diarrhea, gas and acid reflux. Patient states lower abdominal pain has been constant for 5 months, but reports gas and diarrhea with dark stool as of yesterday. Patient reports lower a bdominal pain as 6/10 and states the pain "comes and goes" .He also reports a Patient reports being seen at a local outpatient clinic where he was given medication for H. pylori, but reports no alleviating factors. Patient has no further complaints at this time and otherwise denies further associated symptoms of N/V, hematemesis, chest pain, fever, chills, dysuria, or hematuria. Home Meds Active Scripts Dicyclomine Hcl (BENTYL CAPSULE) 10 Mg Cp, 20 MG PO QID PRN for 10 Days, #30 CAP Prov:CHEYANNE CM MD 12/07/24 Chief Complaint of Abdominal/F: Abdominal pain Onset/Duration of Abd/Flank Pa: Constant Quality of Abd/Flank Pain: Aching, Sharpness Location of Abdominal Onset: RLQ, LLQ, Generalized abdomen Abdominal Pain Radiation: No radiation Activities of Onset of Abd/Fla: Activity Modifying Factors for Abd Pain: Movement Timing of Abdominal Pain: Still present Abd/Flank Pain Exacerbated by: Movements Abd/Flank Pain Relieved by: Medication Past Medical History Cardiac: Hyperlipidemia Pulmonary: No pertinent Hx Central Nervous System: No pertinent Hx GI: GERD Hemotology/Oncology: No pertinent Hx Hepatobiliary: No pertinent Hx Psychiatric: No pertinent Hx Musculoskeletal: No pertinent Hx Infectious Disease: No peritnent Hx ENT: No pertinent Hx Renal/: No pertinent Hx Endocrine: No pertinent Hx Dermatology: No pertinent Hx Past Surgical History: Hernia repair, Other Others Back surgery and knee surgery Family History: No pertinent Hx Patient Family History: Hypertension G8 MOTHER Smoker: No Hx (Negative) Alocohol: Rare Drugs: None Review of Systems Constitutional: No symptom reported Ears, Nose, & Throat: No symptom reported Eyes: No symptom reported Pulmonary/Respiratory: No symptom reported Cardiovascular: No symptom reported Gastrointestinal: No symptom reported, Abdominal Pain Genitourinary: No symptom reported Musculoskeletal: No symptom reported Psychiatric: No symptom reported Endocrine: No symptom reported Hemotologic/Lymphatic: No symptom reported H&P Exam Vital Signs Vital Signs Date Time Temp Pulse Resp B/P (MAP) Pulse Ox O2 Delivery O2 Flow Rate FiO2 12/07/24 09:00 96.6 59 17 121/70 (87) 98 96.6 12/07/24 08:00 Room Air* 0 21 General Appeara: Well developed, Well nourished, Normal Appearance Pulmonary/Respiratory: Normal inspection Cardiovascular/Chest: Normal inspection Abdominal Pain Onset Location: RLQ, LLQ, Generalized abdomen 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: Normal hearing, Normal speech, PERRL Skin Exam: Normal inspection, Normal color, Warm/dry Labs/Xrays Labs Test 12/07/24 08:40 12/06/24 13:08 12/06/24 06:32 12/05/24 11:42 Range/Units White Blood Count 5.6 4.4-10.8 10^3/uL Red Blood Count 5.02 4.5-5.90 10^6/uL Hemoglobin 16.1 13.5-17.5 g/dL Hematocrit 45.3 # 41.0-53.0 % Mean Corpuscular Volume 90.2 80.0-100.0 fL Mean Corpuscular Hemoglobin 32.0 28.0-32.0 pg Mean Corpuscular Hemoglobin Concent 35.5 32.0-36.0 g/dL Red Cell Distribution Width 12.6 11.8-14.3 % Platelet Count 308 140-450 10^3/uL Mean Platelet Volume 7.7 6.9-10.8 fL Neutrophils (%) (Auto) 65.6 37.0-80.0 % Lymphocytes (%) (Auto) 22.7 10.0-50.0 % Monocytes (%) (Auto) 8.0 0.0-12.0 % Eosinophils (%) (Auto) 2.5 0.0-7.0 % Basophils (%) (Auto) 1.2 0.0-2.0 % Neutrophils # (Auto) 3.7 1.6-8.6 10 ^3/uL Lymphocytes # (Auto) 1.3 0.4-5.4 10 ^3/uL Monocytes # (Auto) 0.5 0-1.3 10 ^3/uL Eosinophils # (Auto) 0.1 0-0.8 10 ^3/uL Basophils # (Auto) 0.1 0-0.2 10 ^3/uL Nucleated Red Blood Cells 0.1 % Sodium Level 141 136-145 mmol/L Potassium Level 3.5 3.5-5.1 mmol/L Chloride Level 103 98-107 mmol/L Carbon Dioxide Level 29 20-31 mmol/L Anion Gap 9 5-15 Blood Urea Nitrogen 13 9-23 mg/dL Creatinine 0.82 0.700-1.30 mg/dL Glomerular Filtration Rate Calc 97 >90 mL/min BUN/Creatinine Ratio 15.9 10.0-20.0 Serum Glucose 92 74-106 mg/dL Calcium Level 10.2 8.7-10.4 mg/dL Total Bilirubin 1.1 H 0.2-1.0 mg/dL Aspartate Amino Transferase (AST) 37 13-40 U/L Alanine Aminotransferase (ALT) 40 7-40 U/L Alkaline Phosphatase 66 46-116 U/L Total Protein 7.0 5.7-8.2 g/dL Albumin 4.7 3.2-4.8 g/dL Lipase 34 12-53 U/L Stool for White Cells Few Urine Color Yellow Yellow Urine Clarity Clear Clear Urine pH 5.5 5.0-9.0 Urine Specific [place] 1.030 1.001-1.035 Urine Protein Negative Negative Urine Ketones Negative Negative Urine Blood Negative Negative /uL Urine Nitrite Negative Negative Urine Bilirubin Negative Negative Urine Urobilinogen Normal Negative mg/dL Urine Leukocyte Esterase Negative Negative /uL Urine RBC 1 0 - 3 /hpf Urine Microscopic WBC 1 0-3 /HPF Urine Squamous Epithelial Cells Few <5 /hpf Urine Bacteria None seen None Seen /hpf Urine Glucose Normal Normal mg/dL PATIENT: SANDRA OSMAN ACCT: [id number] UNIT: [id number] : 1960 LOC: ER ROOM / BED: / AGE / SEX: 64 / M ADM STATUS: REG ER SERVICE 1142 ORDERING PHYSICIAN: QUINTEN CONKLIN MD PROCEDURE(s): ABPL - CT AB PEL WO CON-NO ORAL OR IV REASON: pain ORDER NUMBER(s): [id number], ACCESSION NUMBER(s): [id number] EXAM: CT CT AB PEL WO CON-NO ORAL OR IV HISTORY: pain COMPARISON: None TECHNIQUE: Helical CT images of the abdomen and pelvis were performed without IV contrast. Sagittal and coronal reformatted images were obtained. This CT exam was performed using one or more of the following dose reduction techniques: Automated exposure control, adjustment of the mA and/or kv according to patient size, or the use of iterative reconstruction techniques. Radiation Dose: Abdomen/Pelvis: CTDIvol 6.62 mGy, DLP 385.2 mGy*cm. FINDINGS: CT abdomen: There is a 5 mm noncalcified pulmonary nodule in the left lower lobe (image 13, series 3). The heart is not enlarged. There is a hyperattenuating 13 mm lesion in the left renal superior pole cortex (image 29, series 2). The noncontrast liver, spleen, gallbladder, pancreas, right kidney, and bilateral adrenal glands are unremarkable. No abdominal aortic aneurysm. CT pelvis: No abnormal bowel dilatation, free air, or free fluid. The appendix and urinary bladder are unremarkable. The prostate is mildly enlarged. There are postoperative changes of ventral pelvic herniorrhaphy with mesh. There are postoperative changes of L4-L5 discectomy, intervertebral disc prosthesis, and posterior fusion with pedicle screws and rods. There is lumbosacral transitional vertebrae. IMPRESSION: 1. 5 mm left lower lobe noncalcified pulmonary nodule. Recommend follow-up according to Fleischner society guidelines. 2. 13 mm left renal superior pole hyperattenuating cortical lesion which may represent a hyperdense or hemorrhagic cyst. Recommend follow-up renal ultrasound for better characterization. 3. Mild prostatic enlargement. 4. Postoperative changes ventral pelvic wall herniorrhaphy with mesh and lumbar spine surgery. 5. No evidence of bowel obstruction, acute appendicitis, or other acute process in the abdomen or pelvis. ATED BY: ANTONELLA TREADWELL MD DICTATED DATE/TIME: 12/05/24 124 SIGNED BY: ANTONELLA TREADWELL MD SIGNED DATE/TIME: 12/05/241242 PATIENT: SANDRA OSMAN ACCT: [id number] UNIT: [id number] : 1960 LOC: [facility] ROOM / BED: [facility] / B AGE / SEX: 64 / M ADM STATUS: ADM IN SERVICE 1119 ORDERING PHYSICIAN: CHEYANNE CM MD PROCEDURE(s): KIDUS - KIDNEY REASON: Left renal superior pole hyperattenuating cortical lesion. ORDER NUMBER(s): [id number], ACCESSION NUMBER(s): [id number] RENAL ULTRASOUND History: Left renal superior pole hyperattenuating cortical lesion. Comparison: None Technique: Multiple real-time sonographic images of the kidney and bladder were obtained in conjunction with Doppler imaging. Findings: The right kidney measures 9 cm and demonstrates no evidence of hydronephrosis, perinephric fluid collection, or shadowing stone. The left kidney measures 10.5 cm and demonstrates no evidence of hydronephrosis, perinephric fluid collection, or shadowing stone. Urinary bladder: Prevoid urinary bladder volume is 96 mL. Patient unable to vo id. Bladder wall thickening/trabeculation Impression: No hydronephrosis. Previously described left renal upper pole lesion is not well characterized on sonography. Recommend MRI abdomen with and without contrast to evaluate appropriately Bladder volume 96 cc. Patient unable to void. Bladder wall thickening/ trabeculation which can be secondary to neurogenic bladder, outlet obstruction ATED BY: DILLAN STEVENS MD DICTATED DATE/TIME: 12/06/24 123 SIGNED BY: DILLAN STEVENS MD SIGNED DATE/TIME: 12/06/24 123 PATIENT: SANDRA OSMAN ACCT: [id number] UNIT: [id number] : 1960 LOC: [facility] ROOM / BED: [address] [place] [address] AGE / SEX: 64 / M ADM STATUS: ADM IN SERVICE 1252 ORDERING PHYSICIAN: TANO ROSS PROCEDURE(s): GBUS - GALLBLADDER REASON: elevated T Bili, abd pain ORDER NUMBER(s): [id number], ACCESSION NUMBER(s): [id number] ABDOMINAL ULTRASOUND CLINICAL HISTORY: elevated T Bili, abd pain TECHNIQUE: Multiple grayscale and color Doppler ultrasound images were obtained of the abdomen. WID: COMPARISON: None FINDINGS: Liver and Biliary System: Homogeneous echotexture, normal size measuring 15.1 cm. No focal hepatic observations. No intrahepatic bile duct dilatation. The common duct measures 0.4 cm at the kellie hepatis. The gallbladder is normal caliber without wall thickening or cholelithiasis. Pancreas: Not well seen due to overlying bowel gas. IMPRESSION: No evidence of cholecystitis or biliary ductal dilatation. ATED BY: IRENA ARREDONDO MD DICTATED DATE/TIME: 12/06/24 1504 SIGNED BY: RIENA ARREDONDO MD SIGNED DATE/TIME: 12/06/24 1504 Assessment/Plan Problem List: (1) Intractable abdominal pain (2) Complex renal cyst Plan small hemorrhagic/proteinaceous renal cyst outpt f/u with urology for surveillance imaging consider cryoablation of complex cyst Plan discussed with: Patient, Other GURMEET ZAVALA CHIEF OF PEDIATRIC UROLOGY Dec 07, 2024 13:19 RUSSELL ANSARI NP Dec 07, 2024 16:40
--- NOTE | 2024-12-07 15:32 | DVH ---
PROCEDURE: MRI MRI ABDOMEN W AND WO Indication: RENAL CYST COMPARISON: 12/05/2024 TECHNIQUE: Multiplanar multisequence images of the abdomen were obtained with and without contrast FINDINGS: Adrenal glands, spleen unremarkable. Cystic lesions within the pancreatic head measuring 3 mm. Pancr eatic duct normal in caliber. Gallbladder contracted. Numerous hepatic cysts measuring up to 6 mm. Left renal hemorrhagic / proteinaceous cyst measuring 1.2 cm. No internal enhancement. Gastric distention. Imaged small bowel loops normal in caliber. Lumbar fusion hardware. IMPRESSION: Left renal hemorrhagic / proteinaceous cyst measuring 1.2 cm. Cystic lesions within the pancreatic head measuring 3 mm, possibly side-branch IPMN with other consi derations include cystic neoplasm, pseudocyst, simple cyst. A follow-up MRI of the abdomen with and w ithout contrast can be obtained in 1 year. Correlate with patient's risk factors.
[2024-12-07] MEDS ORDERED: DICY10CA PO (16:03)
--- NOTE | 2024-12-07 16:07 | DVHDS2 ---
Discharge Summary Date of Admission Dec 05, 2024 at 18:41 Date of Discharge: Dec 07, 2024 Admitting Diagnosis Abdominal pain in the setting of history of H pylori Labs/Diagnostic Data: Laboratory Results Test 12/07/24 08:40 12/06/24 13:08 12/06/24 06:32 12/05/24 11:42 White Blood Count 5.6 10^3/uL (4.4-10.8) Red Blood Count 5.02 10^6/uL (4.5-5.90) Hemoglobin 16.1 g/dL (13.5-17.5) Hematocrit 45.3 % (41.0-53.0) Mean Corpuscular Volume 90.2 fL (80.0-100.0) Mean Corpuscular Hemoglobin 32.0 pg (28.0-32.0) Mean Corpuscular Hemoglobin Concent 35.5 g/dL (32.0-36.0) Red Cell Distribution Width 12.6 % (11.8-14.3) Platelet Count 308 10^3/uL (140-450) Mean Platelet Volume 7.7 fL (6.9-10.8) Neutrophils (%) (Auto) 65.6 % (37.0-80.0) Lymphocytes (%) (Auto) 22.7 % (10.0-50.0) Monocytes (%) (Auto) 8.0 % (0.0-12.0) Eosinophils (%) (Auto) 2.5 % (0.0-7.0) Basophils (%) (Auto) 1.2 % (0.0-2.0) Neutrophils # (Auto) 3.7 10 ^3/uL (1.6-8.6) Lymphocytes # (Auto) 1.3 10 ^3/uL (0.4-5.4) Monocytes # (Auto) 0.5 10 ^3/uL (0-1.3) Eosinophils # (Auto) 0.1 10 ^3/uL (0-0.8) Basophils # (Auto) 0.1 10 ^3/uL (0-0.2) Nucleated Red Blood Cells 0.1 % Sodium Level 141 mmol/L (136-145) Potassium Level 3.5 mmol/L (3.5-5.1) Chloride Level 103 mmol/L (98-107) Carbon Dioxide Level 29 mmol/L (20-31) Anion Gap 9 (5-15) Blood Urea Nitrogen 13 mg/dL (9-23) Creatinine 0.82 mg/dL (0.700-1.30) Glomerular Filtration Rate Calc 97 mL/min (>90) BUN/Creatinine Ratio 15.9 (10.0-20.0) Serum Glucose 92 mg/dL (74-106) Calcium Level 10.2 mg/dL (8.7-10.4) Total Bilirubin 1.1 mg/dL (0.2-1.0) Aspartate Amino Transferase (AST) 37 U/L (13-40) Alanine Aminotransferase (ALT) 40 U/L (7-40) Alkaline Phosphatase 66 U/L (46-116) Total Protein 7.0 g/dL (5.7-8.2) Albumin 4.7 g/dL (3.2-4.8) Lipase 34 U/L (12-53) Stool for White Cells Few Urine Color Yellow (Yellow) Urine Clarity Clear (Clear) Urine pH 5.5 (5.0-9.0) Urine Specific [place] 1.030 (1.001-1.035) Urine Protein Negative (Negative) Urine Ketones Negative (Negative) Urine Blood Negative /uL (Negative) Urine Nitrite Negative (Negative) Urine Bilirubin Negative (Negative) Urine Urobilinogen Normal mg/dL (Negative) Urine Leukocyte Esterase Negative /uL (Negative) Urine RBC 1 /hpf (0 - 3) Urine Microscopic WBC 1 /HPF (0-3) Urine Squamous Epithelial Cells Few /hpf (<5) Urine Bacteria None seen /hpf (None Seen) Urine Glucose Normal mg/dL (Normal) Other Laboratory Tests 12/07/24 08:40 Brief Hx & Hospital Course: A 64-year-old male patient; with a history of H pylori infection; who presented to the emergency department with worsening abdominal pain. # Abdominal pain with diarrhea; most likely related to H pylori infection; elevated lipase; resolved # 5 mm left lower lobe noncalcified pulmonary nodule; needs outpatient follow up # Postoperative changes of ventral pelvic wall herniorrhaphy with mesh and lumbar spine surgery # Elevated LFTs; resolved # Renal and pancreatic cysts # Overweight GI evaluated during admission; advised the patient to follow up with GI within 2 to 4 weeks for EGD and colonoscopy, and pancreatic cyst Repeat lipase was normal Evaluated by Urology during admission; provided a copy of abdomen/pelvis MRI; advised the patient to follow up with Urology within 2 to 4 weeks to follow up on renal cysts Reviewed lab workup and imaging studies Stool workup negative Counseled the patient on monitor adopting healthy lifestyle with diet and exercise in order to lose weight To follow up with pulmonology within 2 to 4 weeks to follow up on pulmonary nodule To follow up with Dr. Cm next Tuesday in discharge clinic Late Entry. This medical document was created using an electronic medical record system with computerized dictation system. Although this document has been carefully reviewed, there might still be some phonetic and typographical errors. These areas are purely typographical due to imperfections of the software programs, and do not reflect any compromise in the patient's medical care. Consults/Reason for consult GI for abdominal pain; urology for suspected renal mass Condition at Discharge: Stable Final Diagnosis/Problems List # Abdominal pain with diarrhea; most likely related to H pylori infection; elevated lipase; resolved # Postoperative changes of ventral pelvic wall herniorrhaphy with mesh and lumbar spine surgery Rest of diagnoses as above Discharge Disposition: Home Discharge Instruct/Medications Diet: Regular Activity: No Restrictions, As Tolerated Follow Up/Referral: Follow up with Dr. Cm/Dr. Caballero at 08:45 am on Tuesday12/10/2024 at [place] [id number]//Dr. Malin within 2 to 4 weeks//Urology within 2 to 4 weeks//Pulmonology within 2 to 4 weeks Medications: None Scheduled PRN Dicyclomine Hcl (Bentyl Capsule), 20 MG PO QID PRN Discharge Statement: "Patient was advised to return to the ER or call 911 if any headaches, dizziness, shortness of breath, chest pain, abdominal pain, bleeding, fevers, or worsening of medical condition. Patient was counseled about treatment plan, medications, possible side effects, patientverbalized understanding. All questions were answered to the best of my ability. This discharge took greater then 30 minutes in planning, reviewing documentation, counseling the patient, and discussing with other team members." ASSESSMENT ASSESSMENT Assessment # Abdominal pain with diarrhea; most likely related to H pylori infection; elevated lipase; resolved # 5 mm left lower lobe noncalcified pulmonary nodule; needs outpatient follow up # Postoperative changes of ventral pelvic wall herniorrhaphy with mesh and lumbar spine surgery # Elevated LFTs; resolved # Left renal cyst # Pancereatic cyst # Overweight Date of Service: Dec 07, 2024 Billing Provider: CHEYANNE CM MD Common Visit Codes: 79862-BSK/OBS DISCH DAY >30min CHEYANNE CM MD Dec 07, 2024 16:07
--- NOTE | 2024-12-07 16:46 | DVHPN2 ---
Progress Note - Dictate Date Seen: Dec 07, 2024 Medical Necessity Reason Pt with a Central, PICC or Fol: No Subjective Patient seen at bedside He denies any rectal bleeding or diarrhea today ; no stool studies could be collected Patient states he has known about a renal mass for many years Patient's last colonoscopy was about 10 years ago Patient is requesting a discharge home vital signs Vital Sign Date Time Temp Pulse Resp B/P (MAP) Pulse Ox O2 Delivery O2 Flow Rate FiO2 12/07/24 13:00 96.6 57 18 149/78 (101) 99 96.6 12/07/24 08:00 Room Air* 0 21 Total Intake and Output 12/06/24 12/06/24 12/07/24 15:00 23:00 07:00 Intake Total 1000 ml 350 ml Balance 1000 ml 350 ml medications Current Medications Medications Dose Ordered Sig/Hang Route Start Time Stop Time Status Last Admin Dose Admin Sodium Chloride 10 ml Q8HR IV 12/05/24 22:00 12/07/24 13:40 10 ML Docusate Sodium 100 mg BIDPRN PRN PO 12/05/24 18:45 Acetaminophen 650 mg Q6HP PRN PO 12/05/24 18:45 Acetaminophen/ Hydrocodone Bitart 1 tab Q4HP PRN PO 12/05/24 18:45 Ondansetron HCl 4 mg Q4HP PRN IV 12/05/24 18:45 Enoxaparin Sodium 40 mg DAILY SC 12/06/24 10:00 12/07/24 10:30 40 MG Dicyclomine HCl 20 mg QID PO 12/06/24 18:00 12/07/24 12:28 20 MG objective General: NAD, AAOX3 Chest: lung love clear to auscultation Heart: RRR, no murmur Abdomen: non-distended, no tenderness to palpation, +BS laboratory and microbiology Laboratory Tests 12/07/24 08:40 Test 12/07/24 08:40 Range/Units Serum Glucose 92 74-106 mg/dL Problems(with codes): (1) Intractable abdominal pain (2) Complex renal cyst (3) Acute pancreatitis Prognosis Plan Advance diet as tolerated Discharge planning is in progress Patient was advised to return to the ER if symptoms worsen Patient was advised outpatient follow up with me in 2-4 weeks to discuss elective screening colonoscopy Plan discussed with: Patient, Other (Dr Brown) SYLVIA LINTON MD Dec 07, 2024 16:46
== END 2024-12-07 18:09 | disposition home or self-care (01) | DRG 439 ==
LOC: ER 11:16 → OVERFLOW 18:41 → WEST WING 12-06 01:59
PROVIDERS: ADMIT Internal Medicine; ATTEND Internal Medicine
DX: K85.90 Acute pancreatitis without necrosis or infection, unspecified (principal); K86.2 Cyst of pancreas; B96.81 Helicobacter pylori [H. pylori] as the cause of diseases classified elsewhere; N28.89 Other specified disorders of kidney and ureter; N40.0 Benign prostatic hyperplasia without lower urinary tract symptoms; N28.1 Cyst of kidney, acquired; E78.5 Hyperlipidemia, unspecified; K21.9 Gastro-esophageal reflux disease without esophagitis; E66.3 Overweight; Z68.26 Body mass index [BMI] 26.0-26.9, adult; R91.1 Solitary pulmonary nodule; R79.89 Other specified abnormal findings of blood chemistry; Z82.49 Family history of ischemic heart disease and other diseases of the circulatory system; Z86.19 Personal history of other infectious and parasitic diseases
CPT/HCPCS: 36415; 74176; 74183; 76705; 76775; 80053; 81001; 83013; 83690; 85025; 85048; G0378